=== PATIENT | male | born 1995 | race Caucasian/White ===

== ENCOUNTER 2020-01-02 18:28 | Emergency (ER) | payer MEDICAID, SELFPAY ==
[2020-01-02] MEDS ORDERED: Adacel (T-DAP) 0.5 ML SYRINGE ONE (18:43)
== END 2020-01-02 18:59 | disposition home or self-care (01) ==
LOC: NAV ERS 18:28
DX: S91.331A Puncture wound without foreign body, right foot, initial encounter (principal); W45.0XXA Nail entering through skin, initial encounter
CPT/HCPCS: 90471; 90715